=== PATIENT | female | born 1960 | race Caucasian/White ===

== ENCOUNTER → 2017-03-05 | Outpatient (CLI) | payer BC, MEDICAID ==
--- NOTE | 2017-03-06 12:57 | MM ---
Reason for exam: screening (asymptomatic). Last mammogram was performed 1 year and 8 months ago. History: Patient is postmenopausal, history of other cancer, and had first child at age 32. Took hormonal contraceptives for 8 years beginning at age 18. Physical Findings: A clinical breast exam by your physician is recommended on an annual basis and results should be correlated with mammographic findings. MG 3D Screening Mammo W/Cad Bilateral CC and MLO view(s) were taken. Prior study comparison: July 11, 2015, bilateral MG 3d screening mammo w/cad. January 06, 2013, CAD bilateral diagnostic mammogram. There are scattered fibroglandular densities. There is no discrete abnormality. ASSESSMENT: Negative, BI-RAD 1 RECOMMENDATION: Routine screening mammogram of both breasts in 1 year.
== END | disposition home or self-care (01) ==
LOC: RADMAMWWP 08:16
PROVIDERS: ATTEND Family Medicine
DX: Z12.31 Encounter for screening mammogram for malignant neoplasm of breast (principal)
CPT/HCPCS: 77063; G0202

== ENCOUNTER → 2017-07-12 | Outpatient (CLI) | payer MEDICAID ==
[2017-07-12 09:30] LABS: HCT 40.5 % (34.0-46.0); MCH 29.8 pg (25.0-35.0); MCHC 32.1 g/dL (31.0-37.0); Mean Platelet Volume 7.4; Platelet Count 233 k/uL (150-450); RBC 4.35 m/uL (3.80-5.40); RDW 14.7 % (11.5-15.5); WBC 5.1 k/uL (3.8-10.6)
[2017-07-12 09:42] LABS: ALT 52 U/L (9-52); AST 28 U/L (14-36); Albumin 4.1 g/dL (3.5-5.0); Alkaline Phosphatase 72 U/L (38-126); Anion Gap 9 mmol/L; Blood Urea Nitrogen 14 mg/dL (7-17); Calcium 9.8 mg/dL (8.4-10.2); Carbon Dioxide 27 mmol/L (22-30); Chloride 106 mmol/L (98-107); Cholesterol 253 mg/dL (<200); Glucose 99 mg/dL (74-99); HDL Cholesterol 55 mg/dL (40-60); LDL Cholesterol,Calculated 168 mg/dL (0-99); Potassium 4.5 mmol/L (3.5-5.1); Sodium 142 mmol/L (137-145); Total Bilirubin 0.3 mg/dL (0.2-1.3); Total Protein 6.7 g/dL (6.3-8.2); Triglycerides 151 mg/dL (<150)
[2017-07-12 17:42] LABS: Hemoglobin A1C 5.2 % (4.0-6.0)
== END | disposition home or self-care (01) ==
LOC: LABWHC1 09:02
PROVIDERS: ATTEND Family Medicine
DX: K21.9 Gastro-esophageal reflux disease without esophagitis (principal); R53.83 Other fatigue; N17.9 Acute kidney failure, unspecified
CPT/HCPCS: 36415; 80053; 80061; 83036; 84443; 85027

== ENCOUNTER → 2020-01-13 | Outpatient (CLI) | payer MEDICAID ==
--- NOTE | 2020-01-13 10:11 | BD ---
EXAMINATION TYPE: Axial Bone Density DATE OF EXAM: 01/13/2020 COMPARISON: NONE CLINICAL HISTORY: Osteopenia Height: 5 FT 3 IN Weight: 193 FRAX RISK QUESTIONS: Alcohol (3 or more units per day): NO Family History (Parent hip fracture): NO Glucocorticoids (More than 3mos): NO (Ex: prednisone, prednisolone, methylprednisolone, dexamethasone, and hydrocortisone). History of Fracture in Adulthood: YES Secondary Osteoporosis: 1. Type 1 Diabetes: NO 2. Hyperthyroidism: NO 3. Menopause before 45: YES 4. Malnutrition: NO 5. Chronic liver disease: NO Rheumatoid Arthritis: NO Current Tobacco Use: NO RISK FACTORS HISTORY OF: History of Wrist Fracture: BLADE WRIST FX When: JANUARY 2020 Family History of Osteoporosis: YES Active: YES Postmenopausal woman: AGE 41-43 Lost more than 2 inches in height since high school: YES MEDICATIONS: Prednisone or other steroids: YES How Long: ALL HER LIFE Additional Medications: BREO, ALBUTEROL PRN, OMEPRZOLE, SINGULAIR Additional History: EXAM MEASUREMENTS: Bone mineral densitometry was performed using the [employer] System. Bone mineral density as measured about the Lumbar spine is: ----- L1-L4(G/cm2): 0.961 T Score Values are as follows: ----- L2: -1.8 ----- L3: -1.5 ----- L4: -2.2 ----- L1-L4: -1.8 Bone mineral density has: DECREASED -12.0 % since study of: 2004 Bone mineral density about the R hip (g/cm2): 0.932 Bone mineral density about the L hip (g/cm2): 0.876 T Score values are as follows: -----R Neck: -0.8 -----L Neck: -1.2 -----R Total: -0.1 -----L Total: -0.5 Bone mineral density has: DECREASED -5.2 % since study of: 2004 IMPRESSION: Osteopenia (T Score between -2.5 and -1). There is slightly increased risk of fracture and the patient may be considered for treatment. Re-Screen 2-5 years. NOTE: T-SCORE=SD OF THE YOUNG ADULT MEAN.
--- NOTE | 2020-01-14 10:45 | MM ---
Reason for exam: screening (asymptomatic). Last mammogram was performed 2 years and 10 months ago. History: Patient is postmenopausal, history of other cancer, and had first child at age 32. Took hormonal contraceptives for 8 years beginning at age 18. Physical Findings: A clinical breast exam by your physician is recommended on an annual basis and results should be correlated with mammographic findings. MG 3D Screening Mammo W/Cad Bilateral CC and MLO view(s) were taken. Prior study comparison: March 05, 2017, bilateral MG 3d screening mammo w/cad. July 11, 2015, bilateral MG 3d screening mammo w/cad. There are scattered fibroglandular densities. There is no discrete abnormality. No significant changes when compared with prior studies. ASSESSMENT: Negative, BI-RAD 1 RECOMMENDATION: Routine screening mammogram of both breasts in 1 year.
== END | disposition home or self-care (01) ==
LOC: RADMAMWWP 08:01
PROVIDERS: ATTEND Family Medicine
DX: Z12.31 Encounter for screening mammogram for malignant neoplasm of breast (principal); M85.88 Other specified disorders of bone density and structure, other site
CPT/HCPCS: 77063; 77067; 77080

== ENCOUNTER → 2020-01-13 | Outpatient (CLI) | payer MEDICAID ==
[2020-01-13 08:28] LABS: HCT 42.9 % (34.0-46.0); HGB 13.8 gm/dL (11.4-16.0); MCH 30.3 pg (25.0-35.0); MCHC 32.3 g/dL (31.0-37.0); MCV 93.9 fL (80.0-100.0); Platelet Count 262 k/uL (150-450); RBC 4.57 m/uL (3.80-5.40); RDW 13.2 % (11.5-15.5)
[2020-01-13 17:02] LABS: African American GFR (CKD) 70.9 (60.0-200.0); Albumin 4.2 g/dL (3.80-4.90); Albumin/Globulin Ratio 2.33 (1.60-3.17); Anion Gap 8.4 mmol/L (4.00-12.00); Calcium 9.4 mg/dL (8.7-10.3); Carbon Dioxide 26.6 mmol/L (21.6-31.8); Chol/HDL Ratio 4.52; Globulin 1.8 g/dL (1.6-3.3); LDL Cholesterol,Calculated 177.6 mg/dL (0.0-131.0); Non-African American GFR(CKD) 61.2 (60.0-200.0); Potassium 4.4 mmol/L (3.5-5.5); Total Bilirubin 0.3 mg/dL (0.3-1.2); VLDL Calculation 33.4 mg/dL (5.00-40.00)
[2020-01-13 17:48] LABS: Hemoglobin A1C 5.4 % (4.0-6.0)
== END | disposition home or self-care (01) ==
LOC: LABWHC1 07:41
PROVIDERS: ATTEND Family Medicine
DX: J45.909 Unspecified asthma, uncomplicated (principal)
CPT/HCPCS: 36415; 80053; 80061; 82306; 82785; 83036; 84443; 85027

== ENCOUNTER → 2020-02-17 | Outpatient (CLI) | payer MEDICAID ==
--- NOTE | 2020-02-18 05:20 | MR ---
EXAMINATION TYPE: MR wrist RT wo con DATE OF EXAM: 02/17/2020 COMPARISON: None HISTORY: Rt wrist sprain, scaphoid bone cyst Deep layer multiecho imaging of the right wrist was performed with no contrast. FINDINGS: There are multiple small degenerative cysts in the proximal subchondral first metacarpal. There is de generative cyst on the trapezium at the carpometacarpal joint. There is narrowing of the first carpom etacarpal joint space. There is abnormal increased signal in the triquetrum on the T2 images. This is consistent with diffuse bone bruise. There is 7 mm cyst in the proximal scaphoid bone. I see no scap hoid fracture. There are tiny degenerative cysts in the capitate. The lunate is intact. There is narr owing of the radiocarpal joint space. The distal radius and ulna appear intact. The second third four th and fifth metacarpals appear intact. Flexor and extensor tendons of the wrist appear intact. There are multiple small cysts on the posterior aspect of the carpus posterior to the scaphoid trapezium j oint. These are consistent with synovial cysts. IMPRESSION: There is some edema in the triquetrum consistent with a bone bruise. There is osteoarthritis with deg enerative cysts on both sides of the first carpometacarpal joint. There is apparent synovial cyst on the posterior aspect of the scaphoid trapezium joint. There is osteoarthritic narrowing of the radiocarpal joint space. No fracture seen. No evidence of te ndon tear.
== END | disposition home or self-care (01) ==
LOC: RADMRIMAIN 18:18
PROVIDERS: ATTEND Orthopaedic Surgery Hand Surgery
DX: M19.031 Primary osteoarthritis, right wrist (principal); S62.115D Nondisplaced fracture of triquetrum [cuneiform] bone, left wrist, subsequent encounter for fracture with routine healing

== ENCOUNTER → 2020-09-27 | Outpatient (CLI) | payer MEDICAID ==
[2020-09-27 11:46] LABS: Basophils # (A) 0.06 X 10*3/uL (0.00-0.10); Basophils % (A) 1.2 %; Eosinophils # (A) 0.21 X 10*3/uL (0.04-0.35); Eosinophils % (A) 4.1 %; HCT 41.9 % (37.2-46.3); HGB 13.7 g/dL (12.0-15.0); Lymphocytes % (A) 32.9 %; MCHC 32.7 g/dL (32.0-37.0); MCV 91.9 fL (80.0-97.0); Monocytes # (A) 0.46 X 10*3/uL (0.20-1.00); Monocytes % (A) 8.9 %; Neutrophils # (A) 2.71 X 10*3/uL (1.80-7.70); Neutrophils % (A) 52.5 %; Platelet Count 257 X 10*3/uL (140-440); RBC 4.56 X 10*6/uL (4.10-5.20); RDW 12.9 % (11.5-14.5); WBC 5.16 X 10*3/uL (4.50-10.00)
[2020-09-27 12:14] LABS: African American GFR (CKD) 70.4 (60.0-200.0); Albumin 4.6 g/dL (3.80-4.90); Albumin/Globulin Ratio 2.71 (1.60-3.17); Anion Gap 6.2 mmol/L (4.00-12.00); Calcium 9.7 mg/dL (8.7-10.3); Carbon Dioxide 29.8 mmol/L (21.6-31.8); Chol/HDL Ratio 5.14; Globulin 1.7 g/dL (1.6-3.3); LDL Cholesterol,Calculated 210.6 mg/dL (0.0-131.0); Non-African American GFR(CKD) 60.8 (60.0-200.0); Potassium 4.2 mmol/L (3.5-5.5); Total Bilirubin 0.3 mg/dL (0.3-1.2); Total Protein 6.3 g/dL (6.2-8.2); VLDL Calculation 29.4 mg/dL (5.00-40.00)
[2020-09-28 16:36] LABS: Hemoglobin A1C 5.2 % (4.0-6.0)
== END | disposition home or self-care (01) ==
LOC: LABWHC1 07:07
PROVIDERS: ATTEND Family Medicine
DX: R73.02 Impaired glucose tolerance (oral) (principal); E55.9 Vitamin D deficiency, unspecified; R53.83 Other fatigue
CPT/HCPCS: 36415; 80053; 80061; 82306; 83036; 84443; 85025

== ENCOUNTER → 2020-12-31 | Outpatient (CLI) | payer MEDICAID ==
--- NOTE | 2020-12-31 09:13 | MR ---
EXAMINATION TYPE: MR knee RT wo con DATE OF EXAM: 12/31/2020 COMPARISON: None HISTORY: Right knee pain, pain behind knee, painful knee cap, and swelling. TECHNIQUE: Multiplanar, multisequence imaging of the right knee is performed without IV contrast. FINDINGS: MEDIAL MENISCUS: Moderate myxoid degeneration posterior horn medial meniscus extends to the periphery of the meniscus. Microtear is difficult to exclude. Anterior horn of the medial meniscus is intact. LATERAL MENISCUS: Anterior and posterior horns are intact without tear. CRUCIATE LIGAMENTS: There is increased signal within the ACL which may reflect ACL strain. No definit josué tear is appreciated. Posterior cruciate ligament is intact. COLLATERAL LIGAMENTS: The medial collateral ligament and lateral collateral ligament complex are inta ct and unremarkable. EXTENSOR MECHANISM: Visualized quadriceps and patellar tendons are intact. EFFUSION: No significant suprapatellar joint effusion. POPLITEAL CYST: No popliteal/leiva cyst. TRICOMPARTMENT SPACES: Mild degenerative narrowing medial tibiofemoral joint space and patellofemoral joint space. Mild spur formation noted as well. CARTILAGE: Intact BONE MARROW SIGNAL: No focal abnormal marrow signal is appreciated. OTHER: No additional significant abnormality is appreciated. IMPRESSION: 1. 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 The microtear is difficult to exclude. 2. Correlate for ACL strain. 3. Mild changes of osteoarthritis.
--- NOTE | 2020-12-31 09:22 | MR ---
EXAMINATION TYPE: MR knee LT wo con DATE OF EXAM: 12/31/2020 COMPARISON: None HISTORY: Left knee pain, pain behind knee, painful knee cap, and swelling. TECHNIQUE: Multiplanar, multisequence imaging of the left knee is performed without IV contrast. FINDINGS: MEDIAL MENISCUS: Moderate myxoid degeneration posterior horn medial meniscus with extension to the me niscal periphery. The microtear is difficult to exclude. LATERAL MENISCUS: Anterior and posterior horns are intact without tear. CRUCIATE LIGAMENTS: The anterior and posterior cruciate ligaments are intact and unremarkable. COLLATERAL LIGAMENTS: The medial collateral ligament and lateral collateral ligament complex are inta ct and unremarkable. EXTENSOR MECHANISM: Visualized quadriceps and patellar tendons are intact. EFFUSION: No significant suprapatellar joint effusion. POPLITEAL CYST: No popliteal/leiva cyst. TRICOMPARTMENT SPACES: Mild degenerative narrowing medial tibiofemoral joint space and patellofemoral joint space. Mild spur formation seen. CARTILAGE: Intact BONE MARROW SIGNAL: No focal abnormal marrow signal is appreciated. OTHER: No additional significant abnormality is appreciated. IMPRESSION: 1.Moderate myxoid degeneration posterior horn medial meniscus with extension to the meniscal peripher y. The microtear is difficult to exclude.
== END | disposition home or self-care (01) ==
LOC: RADMRIMAIN 07:44
PROVIDERS: ATTEND Orthopaedic Surgery
DX: M17.11 Unilateral primary osteoarthritis, right knee (principal); M25.562 Pain in left knee

== ENCOUNTER 2021-02-07 05:43 | Day surgery (SDC) | payer MEDICAID ==
[2021-02-03 16:02] VITALS: BMI 33.5
[~2021-02-07 05:43] MED LIST: DEXAMETHASONE SOD PHOSPHATE 4 MG/ML 1 ML VIAL IV ONE; LACTATED RINGERS 1,000 ML IV SCH; LIDOCAINE 1% (10MG/ML) FOR IV START INTRADERMA PRN; MIDAZOLAM 2 MG/2 ML VIAL IV PRN; Pre Op ABX Message 1 EACH MISC MISCELLANE ONE
[2021-02-07] MEDS ORDERED: LACTATED RINGERS 1,000 ML IV ONE ×2 (06:13→08:06)
[2021-02-07 06:23] LABS: Glucose,Whole Blood 108 mg/dL (75-99)
[2021-02-07] MEDS: ONDANSETRON 4 MG/2 ML VIAL IVP ONE ×2 (06:24→07:48)
[2021-02-07] MEDS ORDERED: SCOPOLAMINE 1.5MG/72HR PATCH TRANSDERM ONE (06:28)
[2021-02-07] MEDS ORDERED: BUPIVACAINE (PF) 0.5% 30 ML VIAL INTRAARTIC ONE ×2 (06:51→07:26)
[2021-02-07] MEDS ORDERED: HYDROmorphone (PF) 1 MG/ML ONE (06:53)
[2021-02-07] MEDS ORDERED: KETAMINE 10 MG/ML 20 ML VIAL ONE (06:53)
[2021-02-07] MEDS ORDERED: MIDAZOLAM 2 MG/2 ML VIAL ONE (06:53)
[2021-02-07] MEDS ORDERED: LIDOCAINE 1% INJ 10MG/ML (20 ML MDV) ONE (06:53)
[2021-02-07] MEDS ORDERED: ACETAMINOPHEN IV (For NPO) 1,000 MG/100 ML VIAL ONE (06:53)
[2021-02-07] MEDS ORDERED: PROPOFOL 10 MG/ML 20 ML VIAL IV ONE (06:53)
[2021-02-07] MEDS ORDERED: CLINDAMYCIN 150 MG/ML 4 ML VIAL IVPB ONE (06:57)
[2021-02-07] MEDS ORDERED: HYDROmorphone 0.5 MG/0.5 ML SYRINGE IVP PRN (07:00)
[2021-02-07] MEDS ORDERED: ONDANSETRON 4 MG/2 ML VIAL ONE (07:42)
[2021-02-07 07:48] VITALS: TEMP 97.1
[2021-02-07] MEDS ORDERED: KETOROLAC 15 MG/ML 1 ML VIAL ONE (07:48)
[2021-02-07] MEDS ORDERED: KETOROLAC 15 MG/ML 1 ML VIAL IVP ONE (07:51)
[2021-02-07 08:02] VITALS: RESP 16
--- NOTE | 2021-02-07 08:53 | P.OP ---
Date of Procedure: 02/07/21 Preoperative Diagnosis: Torn medial meniscus right knee Postoperative Diagnosis: 1. Torn medial meniscus right knee 2. Torn lateral meniscus right knee 3. Grade 3 chondromalacia patellofemoral compartment 4. 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 Synovitis Procedure(s) Performed: 1. Arthroscopy of the right knee with partial medial meniscectomy (15% of the meniscus excised) 2. Partial lateral meniscectomy (10% of the meniscus excised) 3. Chondroplasties of the medial femoral, lateral femoral, and patellofemoral compartments 4. Partial synovectomy of the medial femoral, lateral femoral, and patellofemoral compartments [facility] Sur[facility]: Hossein Mccloud Estimated Blood Loss (ml): 5 Pathology: none sent Condition: stable Disposition: PACU Indications for Procedure: This is a 60-year-old female presented my office with pain in her right knee. MRI demonstrated torn medial meniscus and after discussing the surgical and nonsurgical treatment options with her at length she wished to proceed with arthroscopic debridement of her right knee. Informed consent was obtained. Operative Findings: The operative findings are consistent with a torn medial and lateral menisci of the right knee. Also there was grade 3 chondromalacia patellofemoral compartment, grade 2 chondral malacia of the medial and lateral femoral compartments. There is also moderate amount of synovitis. Description of Procedure: Patient was seen and evaluated in the preoperative area, the operative site was marked with a skin marker. The patient was then brought to the operating room and given 600 mg of clindamycin intravenously. A general anesthetic was administered by the anesthesia department. Tourniquet was placed on the right upper thigh and the left lower extremity was then prepped and draped in usual sterile fashion. A universal timeout was then performed confirming the patient's name, surgical site, ALLERGIES, and consent. The limb was then exsanguinated and tourniquet insufflated to 300 mmHg. Standard inferior medial and inferior lateral portals were established in the knee. The trochar was inserted in the inferolateral portal. Examination began at the patellofemoral joint. There is noted to be grade 3 chondral malacia of the patellofemoral compartment and a moderate amount of synovitis. Next the medial compartment was visualized. There was a tear of the posterior horn of the medial meniscus. There was grade 2 chondral malacia the mediofemoral compartment and synovitis. The notch area was then visualized and the ACL was intact. The Lateral compartment was then visualized and there was a tear of the lateral horn of the lateral meniscus. There was grade 2 of chondromalacia, and a mild amount of synovitis. Next, using an arthroscopic shaver and a biter, partial medial meniscectomy was performed stable margins. Approximately 15% of the meniscus was excised. a partial lateral meniscectomy was also performed with approximately 10% of the lateral meniscus excised. A partial synovectomy is performed the medial femoral, lateral femoral, patellofemoral compartments. Chondroplasty was also performed of the medial femoral, lateral femoral, and patellofemoral compartments of the knee. Knee was then copiously irrigated, instruments removed, incisions were closed with 4-0 nylon. 30 mL of half percent plain Marcaine was injected sterilely into the surgical area. A sterile dressing was then applied, and the tourniquet was released. Patient was then transferred to recovery room in stable condition.condition.
[2021-02-07 09:00] VITALS: PULSE 66
[2021-02-07 09:15] VITALS: BP 116/71
== END 2021-02-07 10:19 | disposition home or self-care (01) ==
LOC: OR 05:43
PROVIDERS: ATTEND Orthopaedic Surgery
DX: M23.203 Derangement of unspecified medial meniscus due to old tear or injury, right knee (principal); M23.200 Derangement of unspecified lateral meniscus due to old tear or injury, right knee; M22.41 Chondromalacia patellae, right knee; M65.9 Synovitis and tenosynovitis, unspecified; E78.5 Hyperlipidemia, unspecified; J98.4 Other disorders of lung; J45.909 Unspecified asthma, uncomplicated; K30 Functional dyspepsia; R63.5 Abnormal weight gain; Z90.710 Acquired absence of both cervix and uterus; Z98.890 Other specified postprocedural states; Z82.49 Family history of ischemic heart disease and other diseases of the circulatory system; Z87.891 Personal history of nicotine dependence; Z97.2 Presence of dental prosthetic device (complete) (partial); Z90.49 Acquired absence of other specified parts of digestive tract; Z79.899 Other long term (current) drug therapy; Z79.1 Long term (current) use of non-steroidal anti-inflammatories (NSAID); Z88.5 Allergy status to narcotic agent; Z88.0 Allergy status to penicillin
CPT/HCPCS: 29880; J2250; J1100; J2405; J2001; J1170 ×2; J0131; J1885; J2704

== ENCOUNTER → 2021-06-04 | Outpatient (CLI) | payer MEDICAID, OTHER | END | disposition home or self-care (01) | LOC: LABWHC1 15:50 | PROVIDERS: ATTEND Emergency Medicine | DX: U07.1 COVID-19 (principal) | CPT/HCPCS: 87635 ==

== ENCOUNTER → 2021-06-06 | Outpatient (CLI) | payer MEDICAID, OTHER ==
[~2021-06-06] MED LIST changes: +CASIRIVIMAB/IMDEVIMAB (EUA) 1,200 MG in SODIUM CHLORIDE 0.9% 100 ML IVPB ONE; -DEXAMETHASONE SOD PHOSPHATE 4 MG/ML 1 ML VIAL IV ONE; -LACTATED RINGERS 1,000 ML IV SCH; -LIDOCAINE 1% (10MG/ML) FOR IV START INTRADERMA PRN; -MIDAZOLAM 2 MG/2 ML VIAL IV PRN; -Pre Op ABX Message 1 EACH MISC MISCELLANE ONE; +SODIUM CHLORIDE 0.9% 50 ML IVPB ONE; +SODIUM CHLORIDE 0.9% 500 ML 500 ML in EMPTY BAG 1 BAG IV PRN
[2021-06-06 13:47] VITALS: TEMP 96
[2021-06-06 14:25] VITALS: RESP 16
[2021-06-06 14:29] VITALS: BP 130/60; PULSE 72
== END ==
LOC: PROCWHC3 12:51
PROVIDERS: ATTEND Physician Assistant
DX: U07.1 COVID-19 (principal); E66.9 Obesity, unspecified; Z68.33 Body mass index [BMI] 33.0-33.9, adult; Z87.891 Personal history of nicotine dependence; Z88.0 Allergy status to penicillin; Z88.5 Allergy status to narcotic agent
CPT/HCPCS: 96360; Q0243; M0243

== ENCOUNTER → 2021-07-03 | Outpatient (CLI) | payer MEDICAID ==
[2021-07-03 09:22] LABS: HGB 13.6 gm/dL (11.4-16.0); MCH 30.7 pg (25.0-35.0); MCHC 31.7 g/dL (31.0-37.0); MCV 96.8 fL (80.0-100.0); Mean Platelet Volume 7.3; Platelet Count 238 k/uL (150-450); RBC 4.44 m/uL (3.80-5.40); RDW 13.2 % (11.5-15.5); WBC 4.6 k/uL (3.8-10.6)
[2021-07-03 09:30] LABS: ALT 17 U/L (4-34); AST 23 U/L (14-36); African American GFR (CKD) 75 (>60 ml/min/1.73 sqM); Albumin 3.9 g/dL (3.5-5.0); Alkaline Phosphatase 69 U/L (38-126); Anion Gap 4 mmol/L; Blood Urea Nitrogen 17 mg/dL (7-17); Calcium 9.4 mg/dL (8.4-10.2); Carbon Dioxide 28 mmol/L (22-30); Chloride 108 mmol/L (98-107); Glucose 96 mg/dL (74-99); Non-African American GFR(CKD) 65 (>60 ml/min/1.73 sqM); Potassium 4.3 mmol/L (3.5-5.1); Sodium 140 mmol/L (137-145); Total Bilirubin 0.4 mg/dL (0.2-1.3); Total Protein 6.7 g/dL (6.3-8.2)
[2021-07-03 16:37] LABS: Chol/HDL Ratio 5.22 Ratio; LDL Cholesterol,Calculated 184.4 mg/dL (0.0-131.0)
== END | disposition home or self-care (01) ==
LOC: LABPAT 07:48
PROVIDERS: ATTEND Podiatrist Foot & Ankle Surgery
DX: Z01.812 Encounter for preprocedural laboratory examination (principal); Z20.822 Contact with and (suspected) exposure to COVID-19; J45.40 Moderate persistent asthma, uncomplicated; E78.5 Hyperlipidemia, unspecified
CPT/HCPCS: 80061; 80053; 84443; 85027; 87635; 36415; C9803

== ENCOUNTER → 2021-08-30 | Outpatient (CLI) | payer MEDICAID ==
--- NOTE | 2021-08-31 05:29 | MR ---
EXAMINATION TYPE: MR wrist LT wo/w con DATE OF EXAM: 08/30/2021 COMPARISON: None HISTORY: Soft tissue mass of left forarm with marker placed, fov increased to include mass and wrist joint. CONTRAST: Standard multiplanar, multisequence MRI departmental protocol images were obtained without contrast a nd with 9 mL intravenous Gadavist gadolinium contrast. there is increased fluid signal in the subcutaneous tissues in the area of concern over the anterior forearm. this mass measures 3.5 x 2 x 8.5 cm. There is some mild fat stranding. There is no discrete drainabl e fluid collection. The area shows diffuse pathologic enhancement. Muscle structures of the forearm appear intact. The radius and ulna appear intact. The carpal bones a re intact. The intercarpal joint spaces are fairly normal. Wrist joint is intact. There is no evidenc e of focal bone destruction. IMPRESSION: There is evidence of some subcutaneous edema and enhancement in the anterior forearm in the area of c oncern. This is consistent with phlegmon and inflammatory mass.
== END | disposition home or self-care (01) ==
LOC: RADMRIMAIN 20:55
PROVIDERS: ATTEND Orthopaedic Surgery Hand Surgery
DX: R22.32 Localized swelling, mass and lump, left upper limb (principal)
CPT/HCPCS: 73223; A9585

== ENCOUNTER → 2021-12-29 | Outpatient (CLI) | payer MEDICAID ==
--- NOTE | 2022-01-01 14:30 | MM ---
Reason for Exam: Screening (asymptomatic). Last mammogram was performed 1 year(s) and 11 month(s) ago. Patient History: Menarche at age 12. First Full-Term at age 32. Late child-bearing (after 30). Left ovary removed at age 49. Right ovary removed at age 49. Hysterectomy at age 49. Postmenopausal. Other cancer. Hormonal Contraceptives for 8 years from age 18 until age 27. Risk Values: Odette 5 year model risk: 2.1%. NCI Lifetime model risk: 9.4%. Prior Study Comparison: 07/11/2015 Bilateral Screening Mammogram, [facility]. 03/05/2017 Bilateral Screening Mammogram, [facility]. 01/13/2020 Bilateral Screening Mammogram, [facility]. Tissue Density: There are scattered fibroglandular densities. Findings: Analyzed By CAD. There is no suspicious group of microcalcifications or new suspicious mass in either breast. Overall Assessment: Negative, BI-RAD 1 Management: Screening Mammogram of both breasts in 1 year. 1. Patient should continue monthly self breast exams. 2. A clinical breast exam by your physician is recommended on an annual basis. 3. This exam should not preclude additional follow-up of suspicious palpable abnormalities. Electronically signed and approved by: Stephanie Crespo M.D. Radiologist
== END | disposition home or self-care (01) ==
LOC: RADMAMWWP 15:50
PROVIDERS: ATTEND Family Medicine
DX: Z12.31 Encounter for screening mammogram for malignant neoplasm of breast (principal); Z78.0 Asymptomatic menopausal state
CPT/HCPCS: 77063; 77067

== ENCOUNTER → 2022-01-04 | Outpatient (CLI) | payer MEDICAID ==
[2022-01-04 15:21] LABS: HCT 42.7 % (37.2-46.3); HGB 13.8 g/dL (12.0-15.0); MCH 30.1 pg (27.0-32.0); MCHC 32.3 g/dL (32.0-37.0); MCV 93.2 fL (80.0-97.0); Mean Platelet Volume 10.2 fL (9.5-12.2); NRBC Per 100 WBC 0 /100 WBCS (0.0-0.0); Platelet Count 223 X 10*3/uL (140-440); RBC 4.58 X 10*6/uL (4.10-5.20); RDW 13.5 % (11.5-14.5); WBC 4.32 X 10*3/uL (4.50-10.00)
[2022-01-04 16:43] LABS: ALT 18 U/L (8-44); AST 20 U/L (13-35); African American GFR (CKD) 79.4 (60.0-200.0); Albumin 4.4 g/dL (3.8-4.9); Alkaline Phosphatase 83 U/L (41-126); BUN/Creat Ratio 20.89 Ratio (12.00-20.00); Blood Urea Nitrogen 18.8 mg/dL (9.0-27.0); Calcium 9.5 mg/dL (8.7-10.3); Carbon Dioxide 24.3 mmol/L (20.0-27.5); Chloride 107 mmol/L (96-109); Chol/HDL Ratio 4.44 Ratio; Globulin 2.1 g/dL (1.6-3.3); Glucose 96 mg/dL (70-110); LDL Cholesterol,Calculated 147.5 mg/dL (0.0-131.0); Non-African American GFR(CKD) 68.5 (60.0-200.0); Potassium 4.5 mmol/L (3.5-5.5); Sodium 143 mmol/L (135-145); Total Protein 6.5 g/dL (6.2-8.2)
== END | disposition home or self-care (01) ==
LOC: LABWHC1 08:51
PROVIDERS: ATTEND Family Medicine
DX: E55.9 Vitamin D deficiency, unspecified (principal); R73.02 Impaired glucose tolerance (oral)
CPT/HCPCS: 36415; 80053; 80061; 82306; 83036; 84439; 84443; 85027

== ENCOUNTER → 2024-01-16 | Outpatient (CLI) | payer MEDICAID ==
--- NOTE | 2024-01-19 16:24 | BD ---
EXAMINATION TYPE: Axial Bone Density DATE OF EXAM: 01/16/2024 CLINICAL HISTORY: 63 years old Female. ICD-10 CODE: Z13.820 OSTEOPOROSIS Height: 5 ft 3 1/2 in Weight: 211 FRAX RISK QUESTIONS: Alcohol (3 or more units per day): no Family History (Parent hip fracture): no Glucocorticoids (More than 3mos): no (Ex: prednisone, prednisolone, methylprednisolone, dexamethasone, and hydrocortisone). History of Fracture in Adulthood: yes Secondary Osteoporosis: 1. Type 1 Diabetes: no 2. Hyperthyroidism: no 3. Menopause before 45: yes 4. Malnutrition: no 5. Chronic liver disease: no Rheumatoid Arthritis: no Current Tobacco Use: no RISK FACTORS HISTORY OF: Surgery to Spine/Hip(right/left)/Wrist (right/left): abhijeet wrist surg When: 2022 MEDICATIONS: Thyroid Medications: none Osteoporosis Medications: none EXAM MEASUREMENTS: Bone mineral densitometry was performed using the [employer] System. Bone mineral density as measured about the Lumbar spine is: ----- L1-L4(G/cm2): 0.991 T Score Values are as follows: ----- L1: -1.6 ----- L2: -2.3 ----- L3: -1.2 ----- L4: -1.3 ----- L1-L4: -1.6 Z Score Values are as follows: ----- L1: -1.1 ----- L2: -1.7 ----- L3: -0.7 ----- L4: -0.8 ----- L1-L4: -1.0 Bone mineral density has: increased 3.1 % since study of: 2019 Bone mineral density about the R hip (g/cm2): 0.892 Bone mineral density about the L hip (g/cm2): 0.838 T Score values are as follows: -----R Neck: -1.1 -----L Neck: -1.4 -----R Total: -0.3 -----L Total: -0.5 Z Score values are as follows: -----R Neck: -0.3 -----L Neck: -0.7 -----R Total: 0.1 -----L Total: -0.1 Bone mineral density has: decreased -1.2 % since study of: 2020 FRAX%s: The graph provided illustrates a 13.1 % chance for a major osteoporotic fx and a 1.2 % chance for the hips probability for fx in 10 years time. IMPRESSION: Osteopenia (T Score between -2.5 and -1). There is slightly increased risk of fracture and the patient may be considered for treatment. Re-Screen 2-5 years. NOTE: T-SCORE=SD OF THE YOUNG ADULT MEAN.
--- NOTE | 2024-01-24 21:22 | MM ---
Reason for Exam: Screening (asymptomatic). Last mammogram was performed 2 year(s) and 1 month(s) ago. Patient History: Menarche at age 12. First Full-Term at age 32. Late child-bearing (after 30). Left ovary removed at age 49. Right ovary removed at age 49. Hysterectomy at age 49. Postmenopausal. Other cancer. Hormonal Contraceptives for 8 years from age 18 until age 27. Risk Values: Odette 5 year model risk: 2.2%. NCI Lifetime model risk: 8.9%. Prior Study Comparison: 03/05/2017 Bilateral Screening Mammogram, [facility]. 01/13/2020 Bilateral Screening Mammogram, [facility]. 12/29/2021 Bilateral MG 3D screening mammo w/cad, [facility]. Tissue Density: There are scattered areas of fibroglandular density. Findings: Analyzed By CAD. Bilateral areas of asymmetric density are unchanged. There is no suspicious group of microcalcifications or new suspicious mass in either breast. Overall Assessment: Benign, BI-RAD 2 Management: Screening Mammogram of both breasts in 1 year. . Patient should continue monthly self-breast exams. A clinical breast exam by your physician is recommended on an annual basis. This exam should not preclude additional follow-up of suspicious palpable abnormalities. Note on Odette scores and lifetime risk: 1. A Odette score greater than 3% is considered moderate risk. If this is the case, consider specialist referral to assess eligibility for a risk reducing agent. 2. If overall lifetime risk for the development of breast cancer is 20% or higher, the patient may qualify for future screening with alternating mammogram and breast MRI. Electronically signed and approved by: Stephanie Crespo M.D. Radiologist
== END | disposition home or self-care (01) ==
LOC: RADMAMWWP 15:29
PROVIDERS: ATTEND Family Medicine
DX: Z12.31 Encounter for screening mammogram for malignant neoplasm of breast (principal); Z13.820 Encounter for screening for osteoporosis; M85.89 Other specified disorders of bone density and structure, multiple sites; Z78.0 Asymptomatic menopausal state
CPT/HCPCS: 77063; 77067; 77080

== ENCOUNTER → 2024-06-23 | Outpatient (CLI) | payer MEDICAID ==
[2024-06-23 10:17] LABS: HCT 43.2 % (37.2-50.0); HGB 14.3 g/dL (12.0-17.0); MCH 30.1 pg (27.0-32.0); MCHC 33.1 g/dL (32.0-37.0); MCV 90.9 FL (80.0-97.0); Mean Platelet Volume 9.8 FL (9.5-12.2); NRBC Per 100 WBC 0 X 10*3/uL (0.00-0.01); Platelet Count 289 X 10*3/uL (140-440); RBC 4.75 X 10*6/uL (4.10-5.60); RDW 13.2 % (11.5-14.5); WBC 6.35 X 10*3/uL (4.50-10.00)
[2024-06-23 13:09] LABS: ALT 18 U/L (8-49); AST 20 U/L (13-35); Albumin 4.6 g/dL (3.8-4.9); Alkaline Phosphatase 72 U/L (41-126); BUN/Creat Ratio 23.22 Ratio (12.00-20.00); Blood Urea Nitrogen 20.9 mg/dL (9.0-27.0); Calcium 9.6 mg/dL (8.7-10.3); Carbon Dioxide 23.3 mmol/L (21.6-31.8); Chloride 104 mmol/L (96-109); Chol/HDL Ratio 3.34 Ratio; Globulin 2.3 g/dL (1.6-3.3); Glucose 93 mg/dL (70-110); Potassium 4.4 mmol/L (3.5-5.5); Sodium 141 mmol/L (135-145); Total Bilirubin 0.2 mg/dL (0.3-1.2); Total Protein 6.9 g/dL (6.2-8.2)
== END | disposition home or self-care (01) ==
LOC: LABWHC1 06:51
PROVIDERS: ATTEND Family Medicine
DX: I10 Essential (primary) hypertension (principal); E78.5 Hyperlipidemia, unspecified; E66.09 Other obesity due to excess calories; E11.9 Type 2 diabetes mellitus without complications
CPT/HCPCS: 36415; 80053; 80061; 83036; 84443; 85027